=== PATIENT | male | born 1990 | race Caucasian/White ===

== ENCOUNTER 2023-01-03 15:27 | Inpatient (IN) | payer MEDICAID ==
[~2023-01-03] VITALS: Ht 170.2 cm; Wt 60.0 kg
[2023-01-03 16:58] LABS: URINE AMPHETAMINE SCREEN POSITIVE (Neg); URINE BARBITUATE SCREEN NEGATIVE (Neg); URINE BENZODIAZEPINES SCREEN NEGATIVE (Neg); URINE CANNABINOID SCREEN NEGATIVE (Neg); URINE COCAINE SCREEN POSITIVE (Neg); URINE METHADONE SCREEN NEGATIVE (Neg); URINE OPIATE SCREEN NEGATIVE (Neg); URINE PHENCYCLIDINE SCREEN NEGATIVE (Neg)
[2023-01-03 17:41] LABS: BASOPHILS # (AUTO) 0.1 X10'3 (0-0.2); BASOPHILS % (AUTO) 0.7 % (0-1); EOSINOPHILS # (AUTO) 0.3 X10'3 (0-0.9); EOSINOPHILS % (AUTO) 2.9 % (0-6); HEMATOCRIT 43.2 % (42.0-52.0); HEMOGLOBIN 14.7 g/dl (14.0-17.9); LYMPHOCYTES # (AUTO) 3.7 X10'3 (1.1-4.8); LYMPHOCYTES % (AUTO) 42.3 % (21-51); MEAN CORPUSCULAR HEMOGLOBIN 31.3 PG (27.0-31.0); MEAN PLATELET VOLUME 8.2 FL (7.4-10.4); MONOCYTES # (AUTO) 0.5 X10'3 (0-0.9); MONOCYTES % (AUTO) 6.2 % (2-12); NEUTROPHILS # (AUTO) 4.2 X10'3 (1.8-7.7); NEUTROPHILS % (AUTO) 47.9 % (42-75); PLATELET COUNT 274 X10'3 (140-440); RED BLOOD COUNT 4.69 X10'6 (4.70-6.10); WHITE BLOOD COUNT 8.7 X10'3 (4.5-11.0)
[2023-01-03 17:53] LABS: ALANINE AMINOTRANSFERASE 193 U/L (12-78); ALBUMIN 3.4 G/DL (3.4-5.0); ALBUMIN/GLOBULIN RATIO 0.9 (1.1-1.5); ALKALINE PHOSPHATASE 150 IU/L (46-116); ANION GAP 6 (8-16); ASPARTATE AMINO TRANSFERASE 103 U/L (10-37); BILIRUBIN,TOTAL 0.4 MG/DL (0.1-1.0); BLOOD UREA NITROGEN 8 MG/DL (7-18); BUN/CREATININE RATIO 9.1 (10.0-20.0); CALCIUM 8.8 MG/DL (8.5-10.1); CHLORIDE 105 MMOL/L (99-107); CREATININE 0.88 MG/DL (0.60-1.10); GLUCOSE 93 MG/DL (70-104); POTASSIUM 3.4 MMOL/L (3.5-5.1); SODIUM 141 MMOL/L (135-145); TOTAL CARBON DIOXIDE 30.3 MMOL/L (24-32); eCRCL 102 ML/MIN; eGFR > 90 ML/MIN
[2023-01-03 18:02] LABS: THYROID STIMULATING HORMONE 0.98 ulU/ml (0.34-4.50)
[2023-01-03 18:10] LABS: ETHANOL < 10 MG/DL (<10)
--- NOTE | 2023-01-03 19:30 | NUR ---
Arrived to bed-25 in ED overflow at this time from main ED. Patient pleasant, calm, and cooperative.
--- NOTE | 2023-01-03 21:15 | NUR ---
Completed admission assessment at this time, collected medications and input them. Med reconcile to be done. Patient pleasant, calm and cooperative. Reports SI with an undisclosed plan. "I don't want the people involved to know they're involved. Refused to share with nurse.
[2023-01-03] MEDS ORDERED: PROP120C2 PO (21:45)
[2023-01-03] MEDS ORDERED: CARB-212 PO (21:53)
[2023-01-03] MEDS ORDERED: ARIP15TA3 PO (21:53)
[2023-01-03] MEDS ORDERED: SOLR150T PO (21:53)
[2023-01-03] MEDS ORDERED: CLON-527 PO (21:53)
[2023-01-03] MEDS ORDERED: PITO17.8 PO (22:05)
--- NOTE | 2023-01-03 22:20 | NUR ---
Resting in bed at this time with eyes closed. Pending med rec sig from . Will continue to monitor.
[2023-01-03] MEDS: clonazePAM 1mg tablet PO SCH (23:10)
--- NOTE | 2023-01-04 | NUR ---
Patient up to BR then back to sleep. No complaints noted. Will continue to monitor.
--- NOTE | 2023-01-04 02:27 | NUR ---
Patient sleeping. Appears to be comfortable. Will continue to monitor.
--- NOTE | 2023-01-04 04:24 | NUR ---
Patient sleeping. No s/sx of acute distress. Will continue to monitor.
--- NOTE | 2023-01-04 05:20 | NUR ---
Awake and asking for coffee. Appears to be well rested and asking for something to do. "I'm bored." Provided patient with decaf coffee. Pleasant and calm demeanor. Smiling and polite to staff. Will continue to monitor.
--- NOTE | 2023-01-04 05:39 | NUR ---
records sent to [facility]
--- NOTE | 2023-01-04 06:55 | NUR ---
Patient sleeping. No distress observed. Continue to monitor.
[2023-01-04] MEDS: SOLRIAMFETOL HCL 150 MG PO SCH (08:00)
[2023-01-04] MEDS: ARIPIPRAZOLE 15 MG TABLET PO SCH (08:00)
[2023-01-04] MEDS: [UNRECOGNIZED DRUG - OTHER] PO SCH (08:00)
--- NOTE | 2023-01-04 08:11 | NUR ---
Patient eating breakfast. No distress observed. Continue to monitor.
--- NOTE | 2023-01-04 08:35 | NUR ---
RN 1:1. Patient c/o depression due to the of his father earlier this year. Patient went through his belongings and it brought back a lot of pain. Patient is not willing to disclose his method of suicide he has planned. Patient on a 1798 and to be evaluated for a 5150 by [facility] later today. Continue to monitor.
--- NOTE | 2023-01-04 10:05 | NUR ---
[facility] on [facility]150 hold for DTS. Patient received notification from [facility]. Patient is calm and no distress observed. Continue to monitor.
[2023-01-04] MEDS: carBAMazepine 100mg chewable tablet PO SCH (10:43)
[2023-01-04] MEDS: propranolol LA 60 MG cap.SA.24H PO SCH (10:43)
--- NOTE | 2023-01-04 12:08 | NUR ---
Patient eating lunch. No distress observed. Continue to monitor.
--- NOTE | 2023-01-04 13:35 | NUR ---
Pt has been accepted to [facility] by Dr. Hernandez
[2023-01-04 15:45] VITALS: BP 116/85; PULSE 75; RESP 16; TEMP 98.6; O2SAT 95
[2023-01-04] MEDS ORDERED: magnesium hydroxide 30ml (MOM) UD suspension PO PRN (16:20)
[2023-01-04] MEDS ORDERED: loperamide 2mg capsule PO PRN (16:20)
[2023-01-04] MEDS ORDERED: acetaminophen 325mg tablet PO PRN ×2 (16:20)
[2023-01-04] MEDS: NICOTINE POLACRILEX 2 MG LOZENGE BC PRN ×2 (16:39→20:13)
[2023-01-04 16:46] VITALS: RESP 16; O2SAT 95
--- NOTE | 2023-01-04 17:28 | NUR ---
ADMIT NOTE: Pt self presented to ED endorsing SI with a plan. Initially would not divulge the plan. Pt reported that he has access to a gun. Pt reports life stressors including his father passing away in January 2022. He reports he initially did not feel sad as he didn't get along well with his dad, however; he has been going through his dad's things and it is affecting him now. Pt reports that dad of a GI bleed and many empty Vodka bottles were found at his residence. Pt reports suicidal ideation in the past with thoughts of slitting his wrists but friends stopped him both times. Pt's tox screen was positive for cocaine and and amphetamines though pt does have prescriptions for Narcolepsy. Pt reports he has been taking his meds as ordered. 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 Pt reports he has seizures while sleeping, his family has seen him convulsing and he has woken up with his tongue bitten and bloody. Pt reports VH, "flashing" or seeing things out of the corner of his eye that don't immediately go away after looking at them, usually cats. Pt lives with his grandmother. He is unemployed since 2020, he reports due to the narcolepsy. Pt reports anhedonia. Pt does not eat red meat.
[2023-01-04 19:24] VITALS: BP 134/98; PULSE 76; RESP 16; TEMP 96.8; O2SAT 100
[2023-01-04 19:40] VITALS: RESP 16; O2SAT 100
[2023-01-04] MEDS: clonazePAM 1mg tablet PO SCH (20:12)
--- NOTE | 2023-01-05 01:17 | NUR ---
NURSING PROGRESS NOTE: Problem: Pt self-presented to ED endorsing SI with a plan. Initially would not divulge the plan. Pt reported that he has access to a gun. Pt reports life stressors including his father passing away in January 2022. He reports he initially did not feel sad as he didn't get along well with his dad, however; he has been going through his dad's things and it is affecting him now. Pt reports that dad of a GI bleed and many empty Vodka bottles were found at his residence. Pt reports suicidal ideation in the past with thoughts of slitting his wrists but friends stopped him both times. Pt's tox screen was positive for cocaine and amphetamines though pt does have prescriptions for Narcolepsy. Pt reports he has been taking his meds as ordered. 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 Pt reports he has seizures while sleeping, his family has seen him convulsing and he has woken up with his tongue bitten and bloody. Pt reports VH, "flashing" or seeing things out of the corner of his eye that don't immediately go away after looking at them, usually cats. Pt lives with his grandmother. He is unemployed since 2020, he reports due to the narcolepsy. Pt reports anhedonia. Pt does not eat red meat. Interventions: Administer medications as prescribed, Monitor patients response and/or behaviors, Reassure patient safety, increased level of observation for DTS q15 minutes qshift, Seizure precautions. Response: Upon arrival to shift noted patient walking hallways. Noted him to be on the phone frequently this evening. Pleasant and cooperative. Appeared to be well-groomed and dressed in clean street clothes. Reports SI. I feel like Im in hell just a different kind of hell, Denies HI. Reports +VH of, tunnel vision of an opaque light in front of my face the last 2 days. Participates for meals and snack. Socializes with cohort. Able to make needs known. Compliant with HS meds. PRN nicotine lozenge given. Currently comfortable sleeping without s/sx of distress. Will continue to monitor. Plan: TBD
[2023-01-05] MEDS: mag hydrox/Alum hydrox/simeth 30ml oral suspension PO PRN (01:37)
[2023-01-05] MEDS: NICOTINE POLACRILEX 2 MG LOZENGE BC PRN (06:33)
[2023-01-05 07:20] VITALS: RESP 19; O2SAT 100
[2023-01-05 07:59] LABS: CHOL/HDL RATIO 4.5 (0.00-4.99); CHOLESTEROL 208 MG/DL (0-200); HDL CHOLESTEROL 46 MG/DL (35-60); LDL CHOLESTEROL 132 MG/DL (50-100); TRIGLYCERIDES 179 MG/DL (20-135)
[2023-01-05 08:00] VITALS: BP 140/92; PULSE 63; RESP 19; TEMP 98.2; O2SAT 100
[2023-01-05] MEDS: [UNRECOGNIZED DRUG - OTHER] PO SCH (08:00)
[2023-01-05] MEDS: SOLRIAMFETOL HCL 150 MG PO SCH (08:00)
[2023-01-05] MEDS: propranolol LA 60 MG cap.SA.24H PO SCH (08:01)
[2023-01-05] MEDS: ARIPIPRAZOLE 15 MG TABLET PO SCH (08:01)
[2023-01-05] MEDS: nicotine 21mg patch - 24 hr TD SCH (08:02)
[2023-01-05] MEDS: carBAMazepine 100mg chewable tablet PO SCH (08:02)
[2023-01-05 08:05] LABS: HEMOGLOBIN A1C 5.3 % (4.5-6.2)
--- NOTE | 2023-01-05 15:36 | NUR ---
NURSING PROGRESS NOTE: Maria Elena Problem: Pt self-presented to ED endorsing SI with a plan. Initially would not divulge the plan. Pt reported that he has access to a gun. Pt reports life stressors including his father passing away in January 2022. Pt reports suicidal ideation in the past with thoughts of slitting his wrist. 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 Interventions: Administer medications as prescribed, Monitor patients response and/or behaviors, Reassure patient safety, increased level of observation for DTS q15 minutes q shift, Seizure precautions. Response: Received report from [facility] shift. Pt in bed sleeping. Pt calm pleasant and cooperative. Pt compliant with medication with no issues noted. Participates for meals and snacks in community room. Pt participated in groups in community room and socializing with peers. Pt denies HI, and AH. Pt endorse SI and VH. Pt stated tunnel vision of an opaque light in front of my face, flashing of animation. Pt stated seeing something in his peripheral vision like cats for a second and it goes away. Pt stated SI plan to access to a handgun. Pt stated that thought of it being ok to do it. PRN nicotine lozenges administered. Plan: TBD Addendum: 01/05/23 at 1746 by Shant Clarke) BRADY BABATUNDE documentation: I have reviewed and agree with all interventions, assessments performed and documented by Renata FINE.
[2023-01-05 19:26] VITALS: BP 125/85; PULSE 67; RESP 14; TEMP 98.1; O2SAT 98
[2023-01-05 19:43] VITALS: RESP 14; O2SAT 98
[2023-01-05] MEDS: clonazePAM 1mg tablet PO SCH (20:13)
--- NOTE | 2023-01-06 02:54 | NUR ---
NURSING PROGRESS NOTE: Maria Elena Weaver Problem: Pt self-presented to ED endorsing SI with a plan. Initially would not divulge the plan. Pt reported that he has access to a gun. Pt reports life stressors including his father passing away in January 2022. He reports he initially did not feel sad as he didn't get along well with his dad, however; he has been going through his dad's things and it is affecting him now. Pt reports that dad of a GI bleed and many empty Vodka bottles were found at his residence. Pt reports suicidal ideation in the past with thoughts of slitting his wrists but friends stopped him both times. Pt's tox screen was positive for cocaine and amphetamines though pt does have prescriptions for Narcolepsy. Pt reports he has been taking his meds as ordered. 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 Pt reports he has seizures while sleeping, his family has seen him convulsing and he has woken up with his tongue bitten and bloody. Pt reports VH, "flashing" or seeing things out of the corner of his eye that don't immediately go away after looking at them, usually cats. Pt lives with his grandmother. He is unemployed since 2020, he reports due to the narcolepsy. Pt reports anhedonia. Pt does not eat red meat. Interventions: Administer medications as prescribed, Monitor patients response and/or behaviors, Reassure patient safety, increased level of observation for DTS q15 minutes qshift, Seizure precautions. Response: This nurse resumed care for patient at 1830. Patient observed in common room enjoying dinner. During 1:1, patient admitted to suicidal ideation but denied homicidal ideation. Patient denied all other symptoms but pain. Patient expressed he was experiencing pain of a 6/10 feeling like vibrating pain through body. Patient states Im better now that I dont have access to my guns. Patient says his Best friends seen his FB post he had posted and put two and two together and took away his access by changing safe code. Patient added that he feels the doctor strong armed him into agreeing to go to another care facility after here. Patient is currently in bed with eyes closed. No obvious sign of distress to note. 0100 patient approached nursing station for [facility]. Plan: DAYSID
[2023-01-06] MEDS: mag hydrox/Alum hydrox/simeth 30ml oral suspension PO PRN (04:17)
[2023-01-06 07:00] VITALS: RESP 16; O2SAT 97
[2023-01-06] MEDS: propranolol LA 60 MG cap.SA.24H PO SCH (08:00)
[2023-01-06] MEDS: [UNRECOGNIZED DRUG - OTHER] PO SCH (08:00)
[2023-01-06 08:27] VITALS: BP 98/63; PULSE 78; RESP 16; TEMP 97.6; O2SAT 97
[2023-01-06] MEDS: nicotine 21mg patch - 24 hr TD SCH (08:39)
[2023-01-06] MEDS: ARIPIPRAZOLE 15 MG TABLET PO SCH (08:39)
[2023-01-06] MEDS: carBAMazepine 100mg chewable tablet PO SCH (08:40)
[2023-01-06] MEDS: SOLRIAMFETOL HCL 150 MG PO SCH (09:54)
[2023-01-06 11:11] LABS: HBSAG SCREEN Negative (Negative); HEP B CORE AB, IGM Negative (Negative); HEP B CORE AB, TOT Negative (Negative); HEPATITIS C VIRUS ANTIBODY Non Reactive (Non Reactive)
[2023-01-06] MEDS: potassium chloride 10mEq ER tablet PO SCH (11:45)
[2023-01-06] MEDS: FLUoxetine 10mg capsule PO SCH (11:45)
--- NOTE | 2023-01-06 17:53 | NUR ---
NURSING PROGRESS NOTE: Maria Elena Problem: Pt self-presented to ED endorsing SI with a plan. Initially would not divulge the plan. Pt reported that he has access to a gun. Pt reports life stressors including his father passing away in January 2022. Pt reports suicidal ideation in the past with thoughts of slitting his wrist. 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 Interventions: Administer medications as prescribed, Monitor patients response and/or behaviors, Reassure patient safety, increased level of observation for DTS q15 minutes q shift, Seizure precautions. Response: Received patient sleeping in bed at change of shift. Patient awakens and goes into the dining room and socializes with peers. Patient takes medications without incident. Patient is taking his home medication for narcolepsy. He states that he is on another narcolepsy drug that is experimental, but does not have it at this time. Patient reports that he can fall asleep at any time. Patient explains that he feels vibrations on his shoulders and neck area since he has been here. Denies A/H. Patient just sees specks of light in his eyes, with darkness enclosing him as he gets sleepy. Patient has a bright disposition. Patient reports that he is no longer suicidal, but that he just doesnt want to live anymore. He no longer has a plan, as the gun safes code has been changed at his friends house. Patient is pleasant and interactive during 1:1. Patients BP was 98/63, the 240 mg of propranolol was held. Patient was instructed to drink more water to keep his blood pressure up. Patient reports that he lives and cares for his grandmother and would like to be discharged before her birthday on the . Plan: Stabilization in a safe and structured environment.
[2023-01-06 20:00] VITALS: BP 143/43; PULSE 102; RESP 16; TEMP 98.8; O2SAT 99
[2023-01-06] MEDS: clonazePAM 1mg tablet PO SCH (20:27)
--- NOTE | 2023-01-06 23:08 | NUR ---
NURSING PROGRESS NOTE: Maria Elena Problem: Pt self-presented to ED endorsing SI with a plan. Initially would not divulge the plan. Pt reported that he has access to a gun. Pt reports life stressors including his father passing away in January 2022. Pt reports suicidal ideation in the past with thoughts of slitting his wrist. 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 Interventions: Administer medications as prescribed, Monitor patients response and/or behaviors, Reassure patient safety, increased level of observation for DTS q15 minutes q shift, Seizure precautions. Response: Received patient in community room sitting with another peer talking and smiling. Pt states his thoughts of suicide are better than yesterday. Patient states he thinks the Prozac is helping. Pt also said he told his grandma that God doesnt exist and that she didnt like hearing that. Pt had poor eye contact. Pt observed in the community room through snack time, he was also on the phone for a while until bedtime. Pt calm and cooperative with care. Plan: Stabilization in a safe and structured environment.
[2023-01-07 07:00] VITALS: RESP 16; O2SAT 97
[2023-01-07 08:00] VITALS: BP 118/85; PULSE 123; RESP 16; TEMP 97.5; O2SAT 97
[2023-01-07] MEDS: [UNRECOGNIZED DRUG - OTHER] PO SCH (08:00)
[2023-01-07] MEDS: nicotine 21mg patch - 24 hr TD SCH (08:26)
[2023-01-07] MEDS: potassium chloride 10mEq ER tablet PO SCH (08:26)
[2023-01-07] MEDS: propranolol LA 60 MG cap.SA.24H PO SCH (08:26)
[2023-01-07] MEDS: carBAMazepine 100mg chewable tablet PO SCH (08:26)
[2023-01-07] MEDS: FLUoxetine 10mg capsule PO SCH (08:26)
[2023-01-07] MEDS: ARIPIPRAZOLE 15 MG TABLET PO SCH (08:26)
[2023-01-07] MEDS: SOLRIAMFETOL HCL 150 MG PO SCH (10:15)
[2023-01-07 10:17] LABS: ALBUMIN 3.7 G/DL (3.4-5.0); ANION GAP 9 (8-16); BLOOD UREA NITROGEN 13 MG/DL (7-18); BUN/CREATININE RATIO 12.7 (10.0-20.0); CALCIUM 9.4 MG/DL (8.5-10.1); CHLORIDE 100 MMOL/L (99-107); CREATININE 1.02 MG/DL (0.60-1.10); GLUCOSE 179 MG/DL (70-104); POTASSIUM 4.1 MMOL/L (3.5-5.1); SODIUM 136 MMOL/L (135-145); TOTAL CARBON DIOXIDE 27.2 MMOL/L (24-32); eCRCL 89 ML/MIN; eGFR 85 ML/MIN
--- NOTE | 2023-01-07 10:41 | NUR ---
Met with Maria Elena. He reported he has chronic suicidal ideation and no longer has a plan. He reported he can keep himself safe to return home. He reported he no longer has access to his friend's gun as he called and asked the friend to change the combination on the lock so he does not know it. He reported he is glad he has been able to accomplish that. Scheduled follow up for Maria Elena with [facility] and Mahamed Harris. He reported he plans on staying with a friend upon discharge before returning to his grandmother's home. He reported a friend can pick him up when he is ready to discharge. SOFY Cho Addendum: 01/07/23 at 1043 by Mally Cooper Amended: Links added.
[2023-01-07] MEDS ORDERED: PROZ10C PO (11:06)
[2023-01-07] MEDS ORDERED: NICO-687 TD (11:06)
[2023-01-07] MEDS ORDERED: NICO-907 BC (11:06)
--- NOTE | 2023-01-07 13:20 | NUR ---
Nursing Discharge Note. Pt discharged from [facility] at 1255 and picked up by significant other to go home. Pt was speaking clearly and in euthymic mood and happy to be going home. Pt in no acute physical or emotional distress and has been improving since admission. Pt has been provided nicotine replacement and understands his discharge plan and instuctions. His belongings and valuables were inventoried and returned to him.
== END 2023-01-07 12:00 | disposition home or self-care (01) | DRG 753 ==
LOC: ER 15:28 → ED HOLD 01-04 14:10 → ADULT MH 01-04 15:55
PROVIDERS: ADMIT Psychiatry & Neurology Psychiatry; ATTEND Psychiatry & Neurology Psychiatry
DX: F31.30 Bipolar disorder, current episode depressed, mild or moderate severity, unspecified (principal); R45.851 Suicidal ideations; R00.0 Tachycardia, unspecified; F43.10 Post-traumatic stress disorder, unspecified; F41.1 Generalized anxiety disorder; Z20.822 Contact with and (suspected) exposure to COVID-19; E87.6 Hypokalemia; F19.90 Other psychoactive substance use, unspecified, uncomplicated; E78.2 Mixed hyperlipidemia; R74.01 Elevation of levels of liver transaminase levels; G47.419 Narcolepsy without cataplexy; Z79.899 Other long term (current) drug therapy; Z81.8 Family history of other mental and behavioral disorders; Z91.014 Allergy to mammalian meats; Z91.018 Allergy to other foods; F32.A Depression, unspecified; F14.10 Cocaine abuse, uncomplicated
CPT/HCPCS: 36415; 80048; 80053; 80061; 80305; 80320; 83036; 84443; 85025; 86704; 86705; 86803; 87081; 87340; 87522; 87811; 99285

== ENCOUNTER 2023-10-20 19:48 | Emergency (ER) | payer MEDICAID ==
[~2023-10-20] VITALS: Ht 170.2 cm; Wt 65.0 kg
[~2023-10-20 19:48] MED LIST: ARIP15TA3 PO; CARB-212 PO; CLON1TAB2 PO; FLUO-331 PO; NICO-687 TD; NICO-907 BC; PITO17.8 PO; PROP120C2 PO; SOLR150T PO
[2023-10-20] MEDS ORDERED: CLON1TAB12 PO (20:56)
[2023-10-20] MEDS ORDERED: FLUO40CA PO (20:56)
[2023-10-20] MEDS ORDERED: PRAZ1CAP5 PO (20:56)
[2023-10-20 21:01] LABS: BASOPHILS % (AUTO) 0.7 % (0-1); EOSINOPHILS # (AUTO) 0.1 X10'3 (0-0.9); EOSINOPHILS % (AUTO) 1.6 % (0-6); HEMATOCRIT 41.2 % (42.0-52.0); LYMPHOCYTES # (AUTO) 2.5 X10'3 (1.1-4.8); LYMPHOCYTES % (AUTO) 36.6 % (21-51); MEAN CORPUSCULAR HEMOGLOBIN 30.9 PG (27.0-31.0); MEAN CORPUSCULAR HGB CONC 34.1 g/dL (33.0-36.5); MEAN CORPUSCULAR VOLUME 90.6 FL (78-98); MEAN PLATELET VOLUME 6.9 FL (7.4-10.4); MONOCYTES # (AUTO) 0.7 X10'3 (0-0.9); MONOCYTES % (AUTO) 9.3 % (2-12); NEUTROPHILS # (AUTO) 3.6 X10'3 (1.8-7.7); NEUTROPHILS % (AUTO) 51.8 % (42-75); PLATELET COUNT 276 X10'3 (140-440); RED BLOOD COUNT 4.54 X10'6 (4.70-6.10); RED CELL DISTRIBUTION WIDTH 13.4 % (11.5-14.5)
[2023-10-20 21:07] LABS: ALBUMIN 3.5 G/DL (3.4-5.0); ANION GAP 6 (8-16); BLOOD UREA NITROGEN 23 MG/DL (7-18); BUN/CREATININE RATIO 26.7 (10.0-20.0); CALCIUM 9.2 MG/DL (8.5-10.1); CHLORIDE 106 MMOL/L (99-107); CREATININE 0.86 MG/DL (0.60-1.10); ETHANOL < 10 MG/DL (<10); GLUCOSE 102 MG/DL (70-104); SODIUM 141 MMOL/L (135-145); TOTAL CARBON DIOXIDE 28.9 MMOL/L (24-32); eCRCL 113 ML/MIN; eGFR > 90 ML/MIN
[2023-10-20] MEDS: diazepam 5mg tablet PO ONE ×2 (21:19→23:55)
[2023-10-20] MEDS ORDERED: clonazePAM 1mg tablet PO PRN (21:30)
[2023-10-20 22:06] LABS: URINE AMPHETAMINE SCREEN NEGATIVE (Neg); URINE BARBITUATE SCREEN NEGATIVE (Neg); URINE BENZODIAZEPINES SCREEN NEGATIVE (Neg); URINE CANNABINOID SCREEN NEGATIVE (Neg); URINE COCAINE SCREEN NEGATIVE (Neg); URINE METHADONE SCREEN NEGATIVE (Neg); URINE OPIATE SCREEN NEGATIVE (Neg); URINE PHENCYCLIDINE SCREEN NEGATIVE (Neg)
[2023-10-20] MEDS: ziprasidone IM 20mg inj **IM only IM ONE (23:55)
[2023-10-20] MEDS: diphenhydrAMINE 25mg capsule PO ONE (23:55)
[2023-10-21 07:20] LABS: BILIRUBIN,URINE NEGATIVE (Neg); CLARITY,URINE CLOUDY (Clear); COLOR,URINE YELLOW (Yellow); GLUCOSE, URINE NEGATIVE (Neg); KETONES,URINE NEGATIVE (Neg); LEUKOCYTE ESTERASE ,URINE NEGATIVE (Neg); NITRITES, URINE NEGATIVE (Neg); OCCULT BLOOD,URINE NEGATIVE (Neg); PH,URINE 7.5 (4.8-8.0); PROTEIN,URINE 30 mg/dl (Neg); UROBILINOGEN,URINE 0.2 E.U/dL (0.2-1.0)
[2023-10-21 07:25] LABS: UA COLLECTION TYPE CLN CATCH MIDSTREAM
[2023-10-21 07:31] LABS: AMORPHOUS PHOSPHATES 1+; BACTERIA,URINE FEW /HPF (Neg); MUCUS STRANDS FEW /LPF (Neg); RBC,URINE NONE SEEN /HPF (0-2); SPERM MANY /HPF (NEGATIVE); SQUAMOUS EPITHELIAL CELL,UR NONE SEEN /LPF (FEW)
[2023-10-21] MEDS: [UNRECOGNIZED DRUG - OTHER] PO SCH (08:00)
[2023-10-21] MEDS: aripiprazole 15 MG tablet PO SCH (08:50)
[2023-10-21] MEDS: prazosin 1mg capsule PO SCH (08:50)
[2023-10-21] MEDS: FLUoxetine 20mg capsule PO SCH (08:50)
[2023-10-21] MEDS: propranolol LA 60 MG cap.SA.24H PO SCH (08:50)
[2023-10-21 14:22] VITALS: BP 103/73; PULSE 64; RESP 19; TEMP 97.4; O2SAT 98
== END 2023-10-21 14:20 | disposition home or self-care (01) ==
LOC: ER 19:48
DX: F23 Brief psychotic disorder (principal); Z91.014 Allergy to mammalian meats; Z79.899 Other long term (current) drug therapy; Z20.822 Contact with and (suspected) exposure to COVID-19
CPT/HCPCS: 36415; 80048; 80305; 80320; 81001; 85025; 87088; 87811; 96372; 99284; J3486; Q0163